=== PATIENT | male | born 1940 | race Native Hawaiian/Other Pacific Islander ===

== ENCOUNTER 2017-06-27 09:16 | Outpatient (CLI) | payer OTHER | END 2017-06-27 09:31 | disposition short-term general hospital (02) | LOC: AMB 09:16 | DX: M25.572 Pain in left ankle and joints of left foot (principal); M79.652 Pain in left thigh; M79.602 Pain in left arm; M21.832 Other specified acquired deformities of left forearm; W22.8XXA Striking against or struck by other objects, initial encounter; Y92.69 Other specified industrial and construction area as the place of occurrence of the external cause | CPT/HCPCS: A0425; A0427 ==